=== PATIENT | male | born 1975 | race African-American/Black ===

== ENCOUNTER 2019-08-23 16:49 | Inpatient (IN) | payer SELFPAY ==
[2019-08-23] MEDS ORDERED: NA CHLORIDE 0.9% 1,000 ML ONE (17:15)
[2019-08-23] MEDS ORDERED: ONDANSETRON 4 MG/2 ML VIAL ONE (17:15)
[2019-08-23] MEDS ORDERED: MORPHINE 4 MG/ML SYR ONE ×2 (17:15→19:46)
--- NOTE | 2019-08-23 17:54 | RAD REPORT ---
EXAM DESCRIPTION: RAD - Pelvis - 08/23/2019 5:35 pm CLINICAL HISTORY: Pelvic pain status post injury FINDINGS: No fracture or dislocation is seen. Prominent spur extends medially from the left acetabulum
--- NOTE | 2019-08-23 18:04 | RAD REPORT ---
EXAM DESCRIPTION: RAD - Femur Right - 08/23/2019 5:35 pm CLINICAL HISTORY: Right leg pain FINDINGS: A broken needle is present within the lateral soft tissues of the upper knee. 11 millimeter bony/calcific density lies 25 millimeters superior to the patella. Edema is present wit hin the anterior soft tissues the upper knee. This may indicate an avulsion fracture from the patella secondary quadriceps tendon rupture. Another consideration is that the 11 millimeter density represents a chronic calcification and the quadriceps tendon is intact. This all should be correlated clinically. MRI may be helpful for further evaluation
--- NOTE | 2019-08-23 18:07 | RAD REPORT ---
EXAM DESCRIPTION: RAD - Knee Left 3 View - 08/23/2019 5:35 pm CLINICAL HISTORY: Left knee pain status post injury FINDINGS: Two bony/calcific density lies several centimeters above the patella. The largest measures 10 millimeters. The densities could be chronic calcification. Another consideration is that the toney ent has an avulsion fracture from the patella secondary to a quadriceps tendon rupture. This should b e correlated clinically. MRI of the left knee may be helpful for further evaluation No dislocation
[2019-08-23 18:09] LABS: Absolute Lymphocytes (CBC) 1.9 K/uL (0.7-4.9); Basophils % 1.6 % (0-1.3); Lymphocytes % 23.8 % (15.3-44.8); MPV 9.6 fL (7.6-11.3); RBC Red Blood Cell Count 5.06 M/uL (4.33-5.43)
[2019-08-23 18:20] LABS: Potassium 4.2 mmol/L (3.5-5.1)
--- NOTE | 2019-08-23 19:53 | RAD REPORT ---
EXAM DESCRIPTION: CT - Femur Right Wo Con - 08/23/2019 7:20 pm CLINICAL HISTORY: Right leg pain COMPARISON: X-ray August 23, 2019 TECHNIQUE: Computed axial tomography right femur obtained with coronal and sagittal reconstruction All CT scans are performed using dose optimization technique as appropriate and may include automated exposure control or mA/KV adjustment according to patient size. FINDINGS: Several bony/calcific densities lie a couple centimeters above patella. The largest measur es 10 millimeters. There is marked swelling within the anterior tissues of the lower aspect of the le g and upper knee. A small to moderate joint effusion is present. 2.8 centimeter lipoma is present within the anterior compartment musculature right hip 2.3 centimeter broken needle is present within the subcutaneous tissues right lateral upper knee IMPRESSION: These findings are suspicious for a quadriceps tendon rupture with avulsion fracture fra gments of the patella. However, it is recommended that the patient have an MRI of the knee for confi rmation as this is much more specific for diagnosing this injury 2.3 centimeter broken needle is present within the subcutaneous tissues right lateral upper knee
--- NOTE | 2019-08-23 20:00 | RAD REPORT ---
EXAM DESCRIPTION: CT - Knee Left Wo Con - 08/23/2019 7:20 pm CLINICAL HISTORY: Left knee pain status post injury COMPARISON: X-ray August 23, 2019 TECHNIQUE: Computed axial tomography left knee obtained with coronal and sagittal reconstruction All CT scans are performed using dose optimization technique as appropriate and may include automated exposure control or mA/KV adjustment according to patient size. FINDINGS: Two bony/calcific densities lie subcentimeter superior to the patella. Largest measures 8 millimeters. These may represent acute avulsed fragments from patella. Marked swelling is present wit hin the anterior soft tissue of upper knee and lower aspect of the right leg. A large hemarthrosis is present IMPRESSION: These findings are suspicious for a quadriceps tendon rupture with avulsion fracture fra gments from the patella. It is recommended that the patient have an MRI for confirmation. This test i s much more specific in diagnosing this injury Large hemarthrosis
[2019-08-23] MEDS ORDERED: DIPHENHYDRAMINE 50 MG/ML VIAL ONE (21:24)
[2019-08-23] MEDS ORDERED: METHYLPREDNISOLONE 125 MG INJ ONE (21:24)
[2019-08-23] MEDS ORDERED: FAMOTIDINE 20 MG/2 ML VIAL IV ONE (21:25)
[2019-08-23] MEDS ORDERED: IPRATROPIUM BROM 0.5MG/2.5ML ONE (21:34)
[2019-08-23] MEDS ORDERED: ALBUTEROL 2.5 MG/3 ML NEB SOL ONE ×2 (21:34→21:36)
--- NOTE | 2019-08-23 21:52 | EDPHYS ---
Physician Documentation [facility] Name: Titi Cramer Jr Age: 43 yrs Sex: Male : 1975 Arrival Date: 08/23/2019 Time: 16:55 Bed 16 Private MD: ED Physician Myrna Silverio HPI: 08/22 17:10 This 43 yrs old Black Male presents to ER via EMS with complaints of Right Knee and cp Left Knee Pain. 17:10 The patient presents with decreased range of motion, an injury, pain, that is acute. cp The complaints affect the left knee, lateral aspect of right thigh, lateral aspect of right knee and right knee. 17:10 Context: the patient is not able to bear weight, the patient is not able to ambulate, cp Problem is a result from a previous injury: No. Patient reports he went to catch a ball while playing on beach and jumped, after landing starting having pain right upper leg and pain left knee. Historical: - Allergies: 08/23 00:18 Morphine; ls4 - Home Meds: 08/22 17:34 None [Active]; ls4 - PMHx: 17:34 None; ls4 - PSHx: 17:34 None; ls4 - Immunization history:: Adult Immunizations up to date, Flu vaccine is not up to date. It has been more than one year since last vaccine. - Social history:: Smoking status: Patient denies any tobacco usage or history of. Patient uses alcohol, admits to "couple of beers" a day. ROS: 17:15 Constitutional: Negative for body aches, chills, fever, poor PO intake. cp 17:15 Cardiovascular: Negative for chest pain, palpitations. cp 17:15 Respiratory: Negative for cough, shortness of breath, wheezing. 17:15 Abdomen/GI: Negative for abdominal pain. 17:15 Back: Negative for pain at rest, pain with movement. 17:15 MS/extremity: Positive for decreased range of motion, pain, of the left knee and lateral aspect of right knee and lateral aspect of right thigh, Negative for deformity. 17:15 Neuro: Negative for altered mental status, headache, loss of consciousness. 17:15 All other systems are negative. Exam: 17:20 Head/Face: Normocephalic, atraumatic. cp 17:20 Constitutional: The patient appears in no acute distress, alert, awake, non-diaphoretic, non-toxic, well developed, well nourished, obese. 17:20 Eyes: Periorbital structures: appear normal, Conjunctiva: normal, no exudate, no injection, Lids and lashes: appear normal, bilaterally. 17:20 ENT: External ear(s): are unremarkable, Nose: is normal, Mouth: is normal, Posterior pharynx: Airway: no evidence of obstruction, patent. 17:20 Neck: ROM/movement: is normal, is supple, without pain, no range of motions limitations. 17:20 Chest/axilla: Inspection: normal, Palpation: is normal, no crepitus, no tenderness. 17:20 Cardiovascular: Rate: normal, Rhythm: regular, Edema: is not appreciated, JVD: is not appreciated. 17:20 Respiratory: the patient does not display signs of respiratory distress, Respirations: normal, no use of accessory muscles, no retractions, labored breathing, is not present, Breath sounds: are clear throughout, no decreased breath sounds. 17:20 Abdomen/GI: Inspection: abdomen appears normal, Bowel sounds: active, all quadrants, Palpation: abdomen is soft and non-tender, in all quadrants. 17:20 Back: pain, is absent, ROM is normal. 17:20 Musculoskeletal/extremity: Extremities: grossly normal except: noted in the lateral aspect of right knee and lateral aspect of right thigh: decreased ROM, pain, tenderness, patient unable to lift lower leg off table, There is no evidence of deformity, noted in the left knee: decreased ROM, pain, tenderness, patient unable to lift lower leg off table, no evidence of deformity, Pulses: noted to be 2+ in the right dorsalis pedis artery and left dorsalis pedis artery, Severe pain noted. 17:20 Neuro: Orientation: to person, place \\T\\ time. Mentation: is normal. Vital Signs: 16:55 BP 200 / 113; Pulse 75; Resp 16; Temp 98.6(O); Pulse Ox 99% on R/A; Weight 149.69 kg; ls4 Height 5 ft. 9 in. (175.26 cm); Pain 10/10; 18:30 BP 181 / 100; Pulse 75; Resp 16; Pulse Ox 99% on R/A; Pain 5/10; ls4 19:30 BP 159 / 97; Pulse 74; Resp 19; Pulse Ox 99% on R/A; Pain 3/10; ls4 20:30 BP 168 / 115; Pulse 74; Resp 19; Pulse Ox 98% on R/A; Pain 3/10; ls4 21:08 BP 65 / 26; Pulse 57; Resp 29; Pulse Ox 96% on R/A; Pain 0/10; ls4 21:17 BP 162 / 84; Pulse 68; Resp 19; Temp 98.3(O); Pulse Ox 99% on R/A; Pain 3/10; ls4 21:30 BP 136 / 100; Pulse 67; Resp 16; Pulse Ox 99% on R/A; Pain 3/10; ls4 22:30 BP 177 / 110; Pulse 79; Resp 18; Pulse Ox 99% on R/A; Pain 3/10; ls4 08/23 00:42 BP 163 / 97; Pulse 69; Resp 19; Temp 98.3(O); Pulse Ox 100% on R/A; Pain 3/10; ls4 08/22 16:55 Body Mass Index 48.73 (149.69 kg, 175.26 cm) 4 08/22 21:08 PT COMPLAINS OF SOB, DR VERONICA AND MYRNA PANG NOTIFIED. MEDS GIVEN ORDERED. ls4 21:17 PT FEELING MUCH BETTER, AIRWAY CLEAR, LUNGS CLEAR BILATERALLY. ls4 MDM: 16:57 Patient medically screened. [facility] 20:30 Data reviewed: vital signs, nurses notes, radiologic studies, plain films, I have cp discussed the patient's presentation/case with the attending Emergency Department Physician;. 20:36 Physician consultation: Chuy Ocasio MD was called at 20:30, was contacted at cp 20:30, regarding consult, patient's condition, and will see patient in office, next week, requests bilateral knee immobilizers. 21:50 Response to treatment: the patient's symptoms have mildly improved after treatment, and cp as a result, I will admit patient. 21:50 Physician consultation: Nima Grigsby was called at 21:45, was contacted at 21:45, cp regarding admission, to the medical/surgical unit. patient's condition. ED course: VSS. Patient had hypotensive episode and concern for allergic reaction to morphine. Will admit for continued observation and pain control. 08/22 16:58 Order name: Basic Metabolic Panel; Complete Time: 18:54 cp 08/22 18:55 Interpretation: Normal except: CL 108; GLUC 107; CRE 1.43; GFR 65. cp 08/22 16:58 Order name: CBC with Diff; Complete Time: 18:54 cp 08/22 18:55 Interpretation: Normal except: HGB 12.7; MCV 79.0; MCH 25.0; MCHC 31.7; RDW 15.9; MN% cp 13.0; BASO% 1.6. 06 16:58 Order name: XRAY Pelvis; Complete Time: 18:08 cp 08/22 16:58 Order name: XRAY Femur RIGHT; Complete Time: 18:08 cp 08/22 18:09 Interpretation: Report reviewed. 08/22 16:58 Order name: Type And Screen; Complete Time: 19:10 cp 08/22 16:58 Order name: XRAY Knee LEFT 3 view; Complete Time: 18:08 cp 08/22 18:09 Interpretation: Report reviewed. cp 08/22 18:11 Order name: Femur Right Wo Con; Complete Time: 20:04 EDMS 08/22 18:11 Order name: Knee Left Wo Con; Complete Time: 20:04 EDMS 08/22 16:58 Order name: Labs collected and sent; Complete Time: 17:31 cp 08/22 20:38 Order name: Knee Immobilizer; Complete Time: 21:40 cp 08/22 20:38 Order name: Knee Immobilizer; Complete Time: 21:30 cp 08/22 20:51 Order name: Crutches; Complete Time: 21:40 cp 08/22 21:50 Order name: Splint - Posterior Leg; Complete Time: 23:18 cp Administered Medications: 17:36 Drug: morphine 4 mg Route: IVP; Site: left antecubital; ls4 18:01 Follow up: Response: No adverse reaction ls4 17:36 Drug: Zofran (Ondansetron) 4 mg Route: IVP; Site: left antecubital; ls4 18:01 Follow up: Response: No adverse reaction; Marked relief of symptoms ls4 17:36 Drug: NS 0.9% 1000 ml Route: IV; Rate: 1 bolus; Site: left antecubital; ls4 18:40 Follow up: IV Status: Completed infusion; IV Intake: 1000ml ls4 19:32 Drug: morphine 4 mg Route: IVP; Site: left antecubital; ls4 20:07 Follow up: Response: No adverse reaction; Marked relief of symptoms ls4 21:29 Drug: SOLU-Medrol 125 mg Route: IVP; Site: left antecubital; ls4 21:45 Follow up: Response: No adverse reaction; Marked relief of symptoms ls4 21:45 Follow up: Response: No adverse reaction; Marked relief of symptoms ls4 21:29 Drug: Pepcid 20 mg Route: IVP; Site: left antecubital; ls4 21:29 Follow up: Response: No adverse reaction ls4 21:29 Drug: Benadryl 50 mg Route: IVP; Site: left antecubital; ls4 21:45 Follow up: Response: No adverse reaction; Marked relief of symptoms ls4 23:19 Not Given (Patient Refused): HYDROcodone-acetaminophen 10 mg-325 mg 1 tabs PO once; ls4 RASS on ADMIN: Combtv4, Very Agttd3, Agttd2, Rstlss1, AlertClm0, Drwsy-1, Lt Sdtn-2, Mod Sdtn-3, Dp Sdtn-4, UnArsble-5 23:19 Not Given (Patient Refused): Albuterol - atroVENT (3:1) (2.5 mg - 0.5 mg) 3 ml ls4 Nebulizer once Disposition: 22:00 Chart complete. cp 08/23 16:56 Co-signature as Attending Physician, Myrna Silverio MD I agree with the assessment and jennifer plan of care. Disposition: 08/23/19 21:52 Hospitalization ordered by Nima Grigsby for Observation. Preliminary diagnosis is Injury of quadriceps muscle, fascia and tendon - bilateral. - Bed requested for Telemetry/MedSurg (observation). - Status is Observation. ls4 - Condition is Stable. - Problem is new. - Symptoms have improved. Signatures: Dispatcher [employer] Myrna Oreilly MD MD cha Page, Corey, PA PA cp Garcia, Cindy, RETA RN Reyna Guerin RN RN ls4 Corrections: (The following items were deleted from the chart) 08/22 23:22 21:52 Hospitalization Ordered by Nima Grigsby for Observation. Preliminary diagnosis cg is Injury of quadriceps muscle, fascia and tendon - bilateral. Bed requested for Telemetry/MedSurg (observation). Status is Observation. Condition is Stable. Problem is new. Symptoms have improved. cp 08/23 00:18 08/22 17:34 Allergies: No Known Allergies; ls4 ls4 08/23 00:56 08/22 23:22 08/23/2019 21:52 Hospitalization Ordered by Nima Grigsby for Observation. ls4 Preliminary diagnosis is Injury of quadriceps muscle, fascia and tendon - bilateral. Bed requested for Telemetry/MedSurg (observation). Status is Observation. Condition is Stable. Problem is new. Symptoms have improved. cg
--- NOTE | 2019-08-23 21:52 | ER ---
Nurse's Notes [facility] Name: Titi Cramer Jr Age: 43 yrs Sex: Male : 1975 Arrival Date: 08/23/2019 Time: 16:55 Bed 16 Private MD: Diagnosis: Injury of quadriceps muscle, fascia and tendon-bilateral Presentation: 08/22 16:55 Chief complaint: Patient states: I jumped up and when I landed I dislocated my knee. ls4 16:55 Coronavirus screen: Proceed with normal triage. Patient denies a cough. Patient denies ls4 shortness of breath or difficulty breathing. Patient denies measured and/or subjective temperature greater than 100.4F prior to today's visit. Patient denies travel on a cruise ship or to a country the [facility] currently lists as an affected area. Patient denies contact with known and/or suspected case of COVID-19. Ebola Screen: No symptoms or risks identified at this time. Initial Sepsis Screen: Does the patient meet any 2 criteria? No. Patient's initial sepsis screen is negative. Does the patient have a suspected source of infection? No. Patient's initial sepsis screen is negative. Risk Assessment: Do you want to hurt yourself or someone else? Patient reports no desire to harm self or others. Onset of symptoms was August 23, 2019 at 16:00. 16:55 Method Of Arrival: EMS: [facility] ls4 16:55 Acuity: LILLIAN 3 ls4 Triage Assessment: 16:55 General: Appears in no apparent distress. comfortable, Behavior is calm, cooperative. ls4 Pain: Complains of pain in right knee Pain radiates to lateral aspect of right thigh Pain currently is 10 out of 10 on a pain scale. 16:55 Neuro: No deficits noted. Cardiovascular: No deficits noted. Denies chest pain, Chest ls4 pain is denied. Respiratory: Denies cough, shortness of breath labored breathing, pain with respiration, pain with cough, pain with movement. GI: No deficits noted. No signs and/or symptoms were reported involving the gastrointestinal system. : No deficits noted. No signs and/or symptoms were reported regarding the genitourinary system. Derm: No deficits noted. No signs and/or symptoms reported regarding the dermatologic system. Skin is intact, is healthy with good turgor, Skin is dry, Skin is normal, Wound noted Other: no visible wounds. Musculoskeletal: Circulation, motion, and sensation intact. Capillary refill < 3 seconds, Range of motion: limited in right knee. Historical: - Allergies: 08/23 00:18 Morphine; ls4 - Home Meds: 08/22 17:34 None [Active]; ls4 - PMHx: 17:34 None; ls4 - PSHx: 17:34 None; ls4 - Immunization history:: Adult Immunizations up to date, Flu vaccine is not up to date. It has been more than one year since last vaccine. - Social history:: Smoking status: Patient denies any tobacco usage or history of. Patient uses alcohol, admits to "couple of beers" a day. Screenin:36 Abuse screen: Denies threats or abuse. Denies injuries from another. Nutritional ls4 screening: No deficits noted. Tuberculosis screening: No symptoms or risk factors identified. Fall Risk None identified. Assessment: 17:36 Reassessment: Patient appears in no apparent distress at this time. Patient and/or ls4 family updated on plan of care and expected duration. Pain level reassessed. Patient is alert, oriented x 3, equal unlabored respirations, skin warm/dry/pink. 18:30 Reassessment: Patient appears in no apparent distress at this time. Patient and/or ls4 family updated on plan of care and expected duration. Pain level reassessed. Patient is alert, oriented x 3, equal unlabored respirations, skin warm/dry/pink. Patient states symptoms have improved. 23:28 Reassessment: Patient appears in no apparent distress at this time. Patient and/or ls4 family updated on plan of care and expected duration. Pain level reassessed. Patient is alert, oriented x 3, equal unlabored respirations, skin warm/dry/pink. Patient states symptoms have improved. 23:29 Reassessment: REPORT CALLLED TO TAI. QUESTIONS ANSWERED. ls4 Vital Signs: 16:55 BP 200 / 113; Pulse 75; Resp 16; Temp 98.6(O); Pulse Ox 99% on R/A; Weight 149.69 kg; ls4 Height 5 ft. 9 in. (175.26 cm); Pain 10/10; 18:30 BP 181 / 100; Pulse 75; Resp 16; Pulse Ox 99% on R/A; Pain 5/10; ls4 19:30 BP 159 / 97; Pulse 74; Resp 19; Pulse Ox 99% on R/A; Pain 3/10; ls4 20:30 BP 168 / 115; Pulse 74; Resp 19; Pulse Ox 98% on R/A; Pain 3/10; ls4 21:08 BP 65 / 26; Pulse 57; Resp 29; Pulse Ox 96% on R/A; Pain 0/10; ls4 21:17 BP 162 / 84; Pulse 68; Resp 19; Temp 98.3(O); Pulse Ox 99% on R/A; Pain 3/10; ls4 21:30 BP 136 / 100; Pulse 67; Resp 16; Pulse Ox 99% on R/A; Pain 3/10; ls4 22:30 BP 177 / 110; Pulse 79; Resp 18; Pulse Ox 99% on R/A; Pain 3/10; ls4 08/23 00:42 BP 163 / 97; Pulse 69; Resp 19; Temp 98.3(O); Pulse Ox 100% on R/A; Pain 3/10; ls4 08/22 16:55 Body Mass Index 48.73 (149.69 kg, 175.26 cm) ls4 08/22 21:08 PT COMPLAINS OF SOB, DR VERONICA AND MYRNA BAUMAN NOTIFIED. MEDS GIVEN ORDERED. ls4 21:17 PT FEELING MUCH BETTER, AIRWAY CLEAR, LUNGS CLEAR BILATERALLY. ls4 ED Course: 16:55 Patient arrived in ED. jr8 16:55 Arm band placed on. ls4 16:55 Patient has correct armband on for positive identification. Bed in low position. Call ls4 light in reach. Side rails up X 1. 16:55 Pulse ox on. NIBP on. Door closed. Pillow given. Verbal reassurance given. Diet: ls4 Patient is NPO. 16:55 No provider procedures requiring assistance completed. Inserted saline lock: 18 gauge ls4 in left antecubital area, using aseptic technique. 16:56 Myrna Bauman PA is PHCP. cp 16:56 Myrna Silverio MD is Attending Physician. cp 17:02 Reyna Guerin, RETA is Primary Nurse. ls4 17:33 Triage completed. ls4 17:35 XRAY Pelvis In Process Unspecified. EDMS 17:35 XRAY Femur RIGHT In Process Unspecified. EDMS 17:35 XRAY Knee LEFT 3 view In Process Unspecified. EDMS 19:19 Femur Right Wo Con In Process Unspecified. EDMS 19:19 Knee Left Wo Con In Process Unspecified. EDMS 21:51 Nima Grigsby is Hospitalizing Provider. cp 23:28 No apparent distress. ls4 23:29 Orthoglass splint: Posterior long leg splint applied on right leg. Knee immobilizer ls4 applied on left knee. 08/23 00:54 Patient admitted, IV remains in place. ls4 Administered Medications: 08/22 17:36 Drug: morphine 4 mg Route: IVP; Site: left antecubital; ls4 18:01 Follow up: Response: No adverse reaction ls4 17:36 Drug: Zofran (Ondansetron) 4 mg Route: IVP; Site: left antecubital; ls4 18:01 Follow up: Response: No adverse reaction; Marked relief of symptoms ls4 17:36 Drug: NS 0.9% 1000 ml Route: IV; Rate: 1 bolus; Site: left antecubital; ls4 18:40 Follow up: IV Status: Completed infusion; IV Intake: 1000ml ls4 19:32 Drug: morphine 4 mg Route: IVP; Site: left antecubital; ls4 20:07 Follow up: Response: No adverse reaction; Marked relief of symptoms ls4 21:29 Drug: SOLU-Medrol 125 mg Route: IVP; Site: left antecubital; ls4 21:45 Follow up: Response: No adverse reaction; Marked relief of symptoms ls4 21:45 Follow up: Response: No adverse reaction; Marked relief of symptoms ls4 21:29 Drug: Pepcid 20 mg Route: IVP; Site: left antecubital; ls4 21:29 Follow up: Response: No adverse reaction ls4 21:29 Drug: Benadryl 50 mg Route: IVP; Site: left antecubital; ls4 21:45 Follow up: Response: No adverse reaction; Marked relief of symptoms ls4 23:19 Not Given (Patient Refused): HYDROcodone-acetaminophen 10 mg-325 mg 1 tabs PO once; ls4 RASS on ADMIN: Combtv4, Very Agttd3, Agttd2, Rstlss1, AlertClm0, Drwsy-1, Lt Sdtn-2, Mod Sdtn-3, Dp Sdtn-4, UnArsble-5 23:19 Not Given (Patient Refused): Albuterol - atroVENT (3:1) (2.5 mg - 0.5 mg) 3 ml ls4 Nebulizer once Intake: 18:40 IV: 1000ml; Total: 1000ml. ls4 Outcome: 21:52 Decision to Hospitalize by Provider. cp 08/23 00:53 Admitted to Med/surg accompanied by tech, room 224, Report called to TAI ls4 Condition: stable Instructed on the need for admit. 00:56 Patient left the ED. ls4 Signatures: Dispatcher [employer] EDMS Elliott White PA PA [id number] Myrna Bauman PA PA cp Stewart, Lisa RN RN ls4 Corrections: (The following items were deleted from the chart) 08/22 23:20 16:55 Inserted saline lock: in left ls4 ls4 08/23 00:18 08/22 17:34 Allergies: No Known Allergies; ls4 ls4
--- NOTE | 2019-08-23 22:42 | P.HP ---
Certification for Inpatient Patient admitted to: Inpatient With expected LOS: >2 Midnights Practitioner: I am a practitioner with admitting privileges, knowledge of patient current condition, hospital course, and medical plan of care. Services: Services provided to patient in accordance with Admission requirements found in Title 42 Section 412.3 of the Code of Federal Regulations Patient History Date of Service: 08/23/19 Reason for admission: Bilateral knee pain History of Present Illness: 43-year-old morbidly obese gentleman presented to the emergency department after sustaining bilateral knee injury while playing football. Patient jumped and when he landed developed bilateral knee pain and felt her knees are dislocated. His blood pressure was severely elevated in the ED. CT scan of the lower extremities shows possible quadriceps tendon fracture with avulsion of the patella bilaterally. Patient developed hypotension and shortness of breath after a dose of IV morphine in the ED indicating anaphylactic response to the morphine. He was given IV Solu-Medrol, IV Pepcid and Benadryl with good response. Patient currently unable to ambulate. Orthopedic surgeon was contacted. Patient is hospitalized for further evaluation. - Past Medical/Surgical History Diabetic: No -: None -: None - Social History Smoking Status: Never smoker Alcohol use: Yes CD- Drugs: No Place of Residence: Home Review of Systems Other: Except as documented, all other systems reviewed and negative. Physical Examination - Physical Exam General: Alert, In no apparent distress, Obese HEENT: Atraumatic, Normocephalic, PERRLA, Sclerae nonicteric Neck: Supple, JVD not distended Respiratory: Clear to auscultation bilaterally, Normal air movement Cardiovascular: No edema, Regular rate/rhythm, Normal S1 S2 Gastrointestinal: Normal bowel sounds, Soft and benign, Non-distended, No tenderness Musculoskeletal: Swelling (Suprapatellar regions of bilateral knee), Other (Bilateral knees look deformed) Integumentary: No rashes Neurological: Normal speech, Other (Unable to assess motor in bilateral lower extremities.) - Studies Laboratory Data (last 24 hrs) 08/23/19 17:48: WBC 7.8, Hgb 12.7 L, Hct 40.0, Plt Count 242 08/23/19 17:48: Sodium 141, Potassium 4.2, BUN 17, Creatinine 1.43 H, Glucose 107 H Assessment and Plan - Problems (Diagnosis) (1) Quadriceps tendon rupture Current Visit: Yes Status: Acute (2) Patellar fracture Current Visit: Yes Status: Acute (3) Accelerated hypertension Current Visit: Yes Status: Acute (4) Allergy to morphine Current Visit: Yes Status: Acute - Plan Admit to the medical floor. Pain management with IV Toradol. Trial IV fentanyl IV hydralazine p.r.n. for BP spikes. Orthopedic consultation. Keep NPO post midnight in anticipation for surgery. - Advance Directives Does patient have a Living Will: No Does patient have a Durable POA for Healthcare: No
[2019-08-24] MEDS: NA CHLORIDE 0.9% 1,000 ML IV SCH ×2 (02:17→10:32)
[2019-08-24] MEDS: HYDRALAZINE HCL 20 MG/ML VIAL IV PRN ×2 (02:20→23:56)
[2019-08-24 03:16] VITALS: BMI 48.1
[2019-08-24 05:57] LABS: Absolute Lymphocytes (CBC) 0.9 K/uL (0.7-4.9); Basophils % 0.5 % (0-1.3); Hematocrit 39.1 % (39.6-49.0); Lymphocytes % 9.7 % (15.3-44.8); MPV 9.5 fL (7.6-11.3); RBC Red Blood Cell Count 4.84 M/uL (4.33-5.43)
[2019-08-24 06:15] LABS: Magnesium 2.1 mg/dL (1.8-2.4); Phosphorus 2.2 mg/dL (2.5-4.9); Potassium 4.6 mmol/L (3.5-5.1); Thyroid Stimulating Hormone 0.657 uIU/mL (0.360-3.740)
[2019-08-24 07:10] LABS: Blood Morphology Comment NOT SEEN (NOT SEEN); Platelet Estimate ADEQ
--- NOTE | 2019-08-24 07:59 | P.PN ---
Subjective Date of Service: 08/24/19 Chief Complaint: Bilateral knee pain Patient denies any pain as long as he does not move his legs. His blood pressure readings have improved. Physical Examination - Vital Signs Temperature: 97.3 F Blood Pressure: 140/88 Pulse: 82 Respirations: 20 Pulse Ox (%): 97 - Physical Exam General: Alert, In no apparent distress, Obese Respiratory: Clear to auscultation bilaterally, Normal air movement Cardiovascular: No edema, Regular rate/rhythm, Normal S1 S2 Gastrointestinal: Normal bowel sounds, Soft and benign, No tenderness Musculoskeletal: Other (Cold lower extremities in splint) - Studies Laboratory Data (last 24 hrs) 08/23/19 17:48: WBC 7.8, Hgb 12.7 L, Hct 40.0, Plt Count 242 08/23/19 17:48: Sodium 141, Potassium 4.2, BUN 17, Creatinine 1.43 H, Glucose 107 H Assessment And Plan - Current Problems (Diagnosis) (1) Quadriceps tendon rupture Current Visit: Yes Status: Acute (2) Patellar fracture Current Visit: Yes Status: Acute (3) Accelerated hypertension Current Visit: Yes Status: Acute (4) Allergy to morphine Current Visit: Yes Status: Acute - Plan Pain management with IV Toradol and IV fentanyl as needed. IV hydralazine p.r.n. for BP spikes. Patient to be seen by Dr. Ocasio. Awaiting his recommendations.
[2019-08-24] MEDS ORDERED: POTASSIUM PHOS IN 0.9 % NACL 15 MMOL/250 ML BAG IV ONE (08:00)
[2019-08-24 08:01] LABS: Urine Appearance CLEAR; Urine Bilirubin NEGATIVE (NEG); Urine Blood NEGATIVE (NEG); Urine Color YELLOW; Urine Glucose NEGATIVE (NEG); Urine Microscopic Reflex NO UMIC; Urine Protein NEGATIVE (NEG); Urine Urobilinogen 0.2 mg/dL (0.2-1.0)
[2019-08-24] MEDS: KETOROLAC 30 MG/ML INJ IV PRN ×2 (11:42→21:39)
--- NOTE | 2019-08-24 21:12 | CON ---
Date of Consultation: 08/24/2019 History Of Present Illness: This is my first time seeing Mr. Cramer to my knowledge. He is a pa tient who was apparently at the beach. He tried to leap and catch a football when unfortunately he h ad an injury to his right knee and it gave way. He tried to stabilize himself with his left knee and it gave way as well. He then had the inability to straighten his knees and was brought to the emerg ency department. In the emergency department, he had x-rays as well as CT scans, which are not consi stent with bony injury with the exception of possible flex off the superior pole of patella, but phys ical examination otherwise indicates he has bilateral quadriceps tendon ruptures. I was contacted ab out him and asked if they could obtain an MR. He has have told me that MRs are not performed at this facility over the weekend, then discussed perhaps place him into immobilizers and help with transfer training for a wheelchair as long as he was neurovascularly intact. No sign of knee dislocation. Radha gabriel placed him in 1 knee immobilizer and 1 splint and admitted him to the floor under the care of the hospitalist. Physical Examination: Today, he has taken out of his immobilizer and his splint. He does have 1+ effusion of both knees. He is neurovascularly intact with good pulses. He is unable to extend either knee against gravity. Diagnostic Data: Review of his x-rays does not demonstrate any acute bony injury. Assessment: 43-year-old male who unfortunately appears to have bilateral quadriceps tendon ruptures. However, MRI should be done to confirm this. This could more or less be confirmed on physical exam ination alone. However, there is some possible questions and concerns regarding additional injury wh ich if the quadriceps mechanism is repaired, could avoid detection without MRI. I will speak with queta hospitalist. I have also spoken with the physical therapist regarding getting another knee immobil izer for his left side and perhaps instructing him and transfer training, as well as possible ambulat ion weightbearing as tolerated as long as he is in the immobilizer. The patient says he understands thin gs as presented. SE/MODL Voice ID: [id number] Report ID: [id number]
[2019-08-25 05:48] LABS: Phosphorus 2.5 mg/dL (2.5-4.9)
--- NOTE | 2019-08-25 07:29 | P.DS ---
Admission Date: 08/23/19 Discharge Date: 08/25/19 Disposition: ROUTINE DISCHARGE Reason for Admission: Bilateral knee pain Consultations: Orthopedic-Dr. Ocasio - Problems (1) Quadriceps tendon rupture Current Visit: Yes Status: Acute (2) Patellar fracture Current Visit: Yes Status: Acute (3) Accelerated hypertension Current Visit: Yes Status: Acute (4) Allergy to morphine Current Visit: Yes Status: Acute Brief History of Present Illness: 43-year-old morbidly obese gentleman presented to the emergency department after sustaining bilateral knee injury while playing football. Patient jumped and when he landed developed bilateral knee pain and felt her knees are dislocated. His blood pressure was severely elevated in the ED. CT scan of the lower extremities shows possible quadriceps tendon fracture with avulsion of the patella bilaterally. Patient developed hypotension and shortness of breath after a dose of IV morphine in the ED indicating anaphylactic response to the morphine. He was given IV Solu-Medrol, IV Pepcid and Benadryl with good response. Patient currently unable to ambulate. Orthopedic surgeon was contacted. Patient hospitalized for further evaluation. Hospital Course: Patient treated supportively with IV pain medication-Toradol and fentanyl. He was seen and evaluated by Orthopedic Surgery-Dr. Ocasio, MRI of bilateral knees obtained which...... Orthopedic surgery recommended conservative management with immobilization, no surgical intervention. Bilateral knees splinted. Mobility by wheelchair recommended by ortho. Vital Signs/Physical Exam: Temp Pulse Resp BP Pulse Ox 97.1 F 82 18 130/83 96 08/25/19 04:00 08/25/19 04:00 08/25/19 04:00 08/25/19 04:00 08/25/19 04:00 General: Alert, In no apparent distress Respiratory: Clear to auscultation bilaterally, Normal air movement Cardiovascular: No edema, Normal pulses, Regular rate/rhythm, Normal S1 S2 Gastrointestinal: Normal bowel sounds, Soft and benign, No tenderness Musculoskeletal: Other (Bilateral knees in splints) Laboratory Data at Discharge: WBC 9.4 K/uL (4.3-10.9) D 08/24/19 05:28 Hgb 12.3 g/dL (13.6-17.9) L 08/24/19 05:28 Hct 39.1 % (39.6-49.0) L 08/24/19 05:28 Plt Count 224 K/uL (152-406) 08/24/19 05:28 Sodium 139 mmol/L (136-145) 08/25/19 05:08 Potassium 4.0 mmol/L (3.5-5.1) 08/25/19 05:08 BUN 20 mg/dL (7-18) H 08/25/19 05:08 Creatinine 1.30 mg/dL (0.55-1.3) 08/25/19 05:08 Glucose 108 mg/dL (74-106) H 08/25/19 05:08 Phosphorus 2.5 mg/dL (2.5-4.9) 08/25/19 05:08 Magnesium 2.1 mg/dL (1.8-2.4) 08/24/19 05:28 Home Medications: NK [No Home Meds] 08/24/19 Time spent managing pt's care (in minutes): 34
--- NOTE | 2019-08-25 07:31 | P.PN ---
Subjective Date of Service: 08/25/19 Chief Complaint: Bilateral knee pain Patient denies any pain as long as he does not move his legs. MRI of bilateral knees ordered today. Physical Examination - Vital Signs Temperature: 97.1 F Blood Pressure: 130/83 Pulse: 82 Respirations: 18 Pulse Ox (%): 96 - Physical Exam General: Alert, In no apparent distress Respiratory: Clear to auscultation bilaterally, Normal air movement Cardiovascular: No edema, Regular rate/rhythm, Normal S1 S2 Gastrointestinal: Normal bowel sounds, Soft and benign, No tenderness Musculoskeletal: Other (Bilateral knees in splints.) Assessment And Plan - Current Problems (Diagnosis) (1) Quadriceps tendon rupture Current Visit: Yes Status: Acute (2) Patellar fracture Current Visit: Yes Status: Acute (3) Accelerated hypertension Current Visit: Yes Status: Acute (4) Allergy to morphine Current Visit: Yes Status: Acute - Plan Pain management with IV Toradol and IV fentanyl as needed. IV hydralazine p.r.n. for BP spikes. Awaiting MRI of bilateral knees Awaiting Dr. Ocasio's recommendation after MRI result.
[2019-08-25] MEDS: HYDRALAZINE HCL 20 MG/ML VIAL IV PRN ×3 (11:40→22:17)
--- NOTE | 2019-08-25 16:50 | RAD REPORT ---
EXAM DESCRIPTION: MRI - Knee Right Wo Cont - 08/25/2019 4:17 pm CLINICAL HISTORY: quadricwp tendon rupture COMPARISON: Femur Right Wo Con dated 08/23/2019; Femur Right dated 08/23/2019 TECHNIQUE: Sagittal and axial PD and T2 fat sat sequences obtained. Coronal T2 fat sat and T1 sequen joyce also obtained. FINDINGS: No occult fracture, bone bruise or other signal abnormality of the femur, tibia or fibula. No abnormal patella edema pattern seen. No cortical disruption or fracture of the patella identifiab le. Patella tendon is intact. The anterior cruciate, posterior cruciate, medial collateral and lateral collateral ligaments are int act. No meniscus tear identified. No significant chondromalacia. No full thickness osteochondral defects i dentifiable. Large joint effusion is present. Significant edema is seen in the fatty tissues surrounding the knee. The quadriceps tendon is abnormal. There is full-thickness tear of the lateral and mid fibers of the quadriceps tendon. A few intact fibers are present along the lateral aspect of the quadriceps tendon. There is retraction approximately 20 mm of the medial fibers. Detail is limited. The patient has a m etallic foreign body in the subcutaneous fatty tissues of the lateral knee on the same axial plane as a quadriceps tendon injury. This creates artifact across the area of interest. The calcifications se en on the CT are believed to be related to the tendon tear and retraction. The patient has bony hyper trophy at the quadriceps tendon insertion into the patella. . IMPRESSION: Full-thickness quadriceps tendon tear with a few small thin intact fibers along the late ral margin. The medial and mid fibers are retracted along with muscle retraction. The patient had bony hypertroph y at the tendon insertion into the patella. Small fracture fragments from this bony hypertrophy have retracted along with the tendon and muscle fibers. Large joint effusion. Edema is seen in the subcutaneous fatty tissues. No fracture of the body of the patella. Metallic foreign body in the subcutaneous fatty tissues anterior lateral creates significant artifact which is at the same axial plane as the quadriceps tendon injury.
--- NOTE | 2019-08-25 16:58 | RAD REPORT ---
EXAM DESCRIPTION: MRI - Knee Left Wo Cont - 08/25/2019 4:35 pm CLINICAL HISTORY: Knee injury, quadriceps tendon COMPARISON: CT left knee August 22, plain film left knee August 22 TECHNIQUE: Sagittal and axial PD and T2 fat sat sequences obtained along with coronal T1 and T2 fat sat sequences. FINDINGS: No occult fracture, bone bruise or marrow replacing process of the femur, tibia or fibula. No significant chondromalacia changes are identifiable. There is no full-thickness osteochondral def ect of the tibia or femur. The anterior cruciate, posterior cruciate, medial collateral and lateral c ollateral ligaments are intact. Horizontal tear is present in the posterior horn medial meniscus extending to the inferior articular surface. No free or displaced meniscal tissue. No patella tendon injury identified. Minimal edema changes are present in the patella. There is no c ortical disruption of the patella. Patient has full-thickness rupture of all fibers of the quadriceps tendon. Small fibers remain at th e patella insertion. Muscle belly and proximal fibers of the tendon are retracted 3 cm. At the avulsi on site there is a 6 x 3 x 3 centimeter hematoma. This appears to communicate with the joint space. Prior to injury the patient had bony hypertrophy at the quadriceps tendon insertion into the patella. Several small calcified fragments from this area of hypertrophy have retracted along with the tendon fibers. IMPRESSION: Quadriceps tendon rupture involving all fibers. Small remnant fibers remain at the inser tion site. Muscle belly and proximal tendon fibers have retracted 3 cm and there is a 6 x 3 x 3 centimeter hemat saurabh at the rupture site. No fracture of the patella. Small calcific fragments remain attached to the retracted tendon fibers. These were part of calcific hypertrophy at the insertion site prior to injury. No patella tendon injury. Posterior horn medial meniscus tear. No free or displaced meniscal tissue.
[2019-08-25] MEDS: KETOROLAC 30 MG/ML INJ IV PRN (18:44)
[2019-08-25] MEDS ORDERED: ACETAMINOPHEN 325 MG TABLET PO PRN (23:42)
[2019-08-26] MEDS ORDERED: TRAMADOL HCL 50 MG TAB PO PRN (14:31)
--- NOTE | 2019-08-26 14:38 | P.PN ---
Subjective Date of Service: 08/26/19 Primary Care Provider: none Chief Complaint: Bilateral knee pain Subjective: Improving, Doing well, Other (Pain to the knees and lower extremities controlled.) Physical Examination - Vital Signs Temperature: 97.9 F Blood Pressure: 177/90 Pulse: 79 Respirations: 16 Pulse Ox (%): 97 - Physical Exam General: Alert, In no apparent distress, Oriented x3, Cooperative HEENT: Atraumatic Neck: Supple Respiratory: Clear to auscultation bilaterally, Normal air movement Cardiovascular: Normal pulses, Regular rate/rhythm Gastrointestinal: Normal bowel sounds, Soft and benign, Non-distended Integumentary: Other (Knee immobilizer in place) Neurological: Normal speech, Normal strength at 5/5 x4 extr, Normal tone, Other (Patient in bed.) - Studies Medications List Reviewed: Yes Assessment & Plan Discharge Plan: Home Plan to discharge in: Greater than 2 days Physician Review Additional Text: Impression: Right full-thickness quadriceps tendon tear with larger right knee joint diffusion Left quadriceps tendon rupture,with retracted 3 cm muscle belly and proximal tendon fiber and 6 x 3 x 3 cm hematoma at rupture site Elevated blood pressure suspect hypertension Plan: Case discussed at length with orthopedics. Patient will require surgery. Orthopedics will plan for surgery tomorrow. Patient will require physical therapy at discharge along with close follow up. Will discuss with social insurance administrator to help with options of post operative care. Patient will require knee immobilizers to both knees, wheelchair, and walker. Will order physical therapy after surgery tomorrow. Blood pressure is elevated. Will start metoprolol. Will continue to adjust medication. Provide medication for pain. Time Spent Managing Pts Care (In Minutes): 55
[2019-08-26] MEDS: METOPROLOL TAR 25 MG TAB PO SCH (17:01)
[2019-08-26] MEDS: ENOXAPARIN 40 MG/0.4 ML SQ SCH (17:01)
[2019-08-27] MEDS: METOPROLOL TAR 25 MG TAB PO SCH ×2 (05:03→08:35)
[2019-08-27 06:00] LABS: Basophils % 0.9 % (0-1.3); Hematocrit 37.4 % (39.6-49.0); Lymphocytes % 24.1 % (15.3-44.8); MPV 9.2 fL (7.6-11.3); RBC Red Blood Cell Count 4.73 M/uL (4.33-5.43)
[2019-08-27 06:25] LABS: Magnesium 2.5 mg/dL (1.8-2.4); Potassium 4.1 mmol/L (3.5-5.1)
[2019-08-27] MEDS: HYDRALAZINE HCL 20 MG/ML VIAL IV PRN (09:45)
[2019-08-27] MEDS ORDERED: Ringers Lactate 1,000 ML IV ONE ×2 (13:21→14:55)
[2019-08-27] MEDS ORDERED: LIDOCAINE 2% MPF 5 ML VIAL ONE (14:03)
[2019-08-27] MEDS ORDERED: dexAMETHasone 10 MG/ML VIAL ONE (14:03)
[2019-08-27] MEDS ORDERED: propofoL 200 MG/20 ML VIAL IV ONE (14:03)
[2019-08-27] MEDS ORDERED: MIDAZOLAM HCL 2 MG/2 ML INJ ONE (14:03)
[2019-08-27] MEDS ORDERED: FENTANYL CITR 100 MCG/2 ML ONE ×2 (14:03→14:53)
[2019-08-27] MEDS ORDERED: CEFAZOLIN/SWI 1gm 1 GM/10 ML SYR ONE (14:23)
[2019-08-27] MEDS ORDERED: CEFAZOLIN SODIUM 1 GM/VIAL ONE (14:24)
[2019-08-27] MEDS ORDERED: ROCURONIUM 50 MG/5 ML VIAL IV ONE ×2 (14:29→14:52)
[2019-08-27] MEDS ORDERED: GLYCOPYRROLATE 0.2 MG/ML SYR ONE (15:08)
--- NOTE | 2019-08-27 15:27 | P.PN ---
Subjective Date of Service: 08/27/19 Primary Care Provider: none Chief Complaint: Bilateral knee pain Subjective: Improving Physical Examination - Vital Signs Temperature: 97.9 F Blood Pressure: 160/94 Pulse: 75 Respirations: 20 Pulse Ox (%): 97 - Physical Exam General: Alert, Cooperative HEENT: Atraumatic Neck: Supple Respiratory: Clear to auscultation bilaterally, Normal air movement Cardiovascular: Normal pulses, Regular rate/rhythm Gastrointestinal: Normal bowel sounds, Soft and benign, Non-distended Musculoskeletal: Other (Knee immobilizers in place) - Studies Medications List Reviewed: Yes Assessment & Plan Discharge Plan: Home Plan to discharge in: 72 Hours Physician Review Additional Text: Impression: Right full-thickness quadriceps tendon tear with larger right knee joint diffusion Left quadriceps tendon rupture,with retracted 3 cm muscle belly and proximal tendon fiber and 6 x 3 x 3 cm hematoma at rupture site Elevated blood pressure suspect hypertension Plan: Case discussed at length with orthopedics yesterday. Surgery is planned for today. Will start physical therapy tomorrow. Patient will require knee immobilizers, wheelchair and walker at discharge. Will discuss with social media community manager. Await further recommendations from Orthopedics. Blood pressure elevated. Suspect hypertension. Metoprolol started yesterday. Will continue to adjust appropriately. Time Spent Managing Pts Care (In Minutes): 55
[2019-08-27] MEDS ORDERED: NEOSTIGMINE 1 MG/ML -5 ML ONE (15:34)
[2019-08-27] MEDS ORDERED: NALOXONE 0.4 MG/ML VIAL ONE (15:35)
[2019-08-27] MEDS ORDERED: LABETALOL 20 MG/4ML SYRINGE IV ONE (15:35)
[2019-08-27] MEDS ORDERED: HYDRALAZINE HCL 20 MG/ML VIAL ONE (15:52)
[2019-08-27] MEDS: ENOXAPARIN 40 MG/0.4 ML SQ SCH (17:04)
[2019-08-27] MEDS: METOPROLOL TAR 50 MG TAB PO SCH (17:04)
[2019-08-27] MEDS: ONDANSETRON 4 MG/2 ML VIAL IV PRN (17:56)
[2019-08-28 05:39] LABS: Magnesium 2.7 mg/dL (1.8-2.4); Potassium 4.6 mmol/L (3.5-5.1)
[2019-08-28 05:41] LABS: Absolute Lymphocytes (CBC) 1.3 K/uL (0.7-4.9); Basophils % 0.4 % (0-1.3); Hematocrit 37.4 % (39.6-49.0); Lymphocytes % 10.7 % (15.3-44.8); MPV 9.6 fL (7.6-11.3)
[2019-08-28] MEDS: METOPROLOL TAR 50 MG TAB PO SCH ×2 (06:42→17:35)
[2019-08-28] MEDS: FENTANYL CITR 100 MCG/2 ML IV PRN ×3 (09:20→22:04)
--- NOTE | 2019-08-28 13:53 | P.PN ---
Subjective Date of Service: 08/28/19 Primary Care Provider: none Chief Complaint: Bilateral knee pain Subjective: No new changes, Improving <Nahum Bhandari - Last Filed: 08/28/19 13:49> Date of Service: 08/28/19 <Chin Gaonaand - Last Filed: 08/28/19 16:41> Review of Systems General: Unremarkable Eyes: Unremarkable ENT: Unremarkable Respiratory: Unremarkable Cardiovascular: Unremarkable Gastrointestinal: Unremarkable Genitourinary: Unremarkable Musculoskeletal: As per HPI Integumentary: Unremarkable Neurological: Unremarkable Lymphatics: Unremarkable <Nahum Bhandari - Last Filed: 08/28/19 13:49> Physical Examination - Vital Signs Temperature: 97.2 F Blood Pressure: 136/88 Pulse: 67 Respirations: 20 Pulse Ox (%): 97 - Physical Exam General: Alert, In no apparent distress, Oriented x3 HEENT: Atraumatic, Normocephalic Neck: Supple Respiratory: Clear to auscultation bilaterally, Normal air movement Cardiovascular: No edema, Regular rate/rhythm, Normal S1 S2 Capillary refill: <2 Seconds Gastrointestinal: Normal bowel sounds Musculoskeletal: No erythema, No tenderness, No warmth Integumentary: No erythema, No warmth, No cyanosis Neurological: Normal speech, Normal tone, Normal affect - Studies Medications List Reviewed: Yes <Nahum Bhandari - Last Filed: 08/28/19 13:49> Assessment & Plan Discharge Plan: Home Plan to discharge in: 24 Hours - Code Status/Comfort Care Code Status Assessed: Yes (Patient is full code) Physician Review Additional Text: Impression: Right full-thickness quadriceps tendon tear with larger right knee joint diffusion Left quadriceps tendon rupture,with retracted 3 cm muscle belly and proximal tendon fiber and 6 x 3 x 3 cm hematoma at rupture site Elevated blood pressure suspect hypertension Plan: Yesterday orthopedic took patient to the operating room. Anesthesiology was unable to secure airway for the procedure after attempting direct laryngoscopy, video-assisted laryngoscopy, and bougie placement. LMA insertion was also attempted but they were unable to obtain a good seal. The procedure was abandoned. After discussing case with anesthesiology, orthopedics, ENT the plan going forward is for anesthesiology to perform a regional block for the procedure. Orthopedics plans to take the patient back to the operating room today this evening. Appreciate further input from orthopedics at this time. Patient's blood pressure has improved since initiation of beta-allie therapy. Will continue to monitor patient's blood pressure. Critical Care: No Time Spent Managing Pts Care (In Minutes): 55 <Nahum Bhandari - Last Filed: 08/28/19 13:49> Physician Review Additional Text: Patient seen and examined. Case also discuss with orthopedics, ENT and anesthesia. Anesthesia and surgery had planned for surgery today but his case was come to be too late. Surgery was canceled since of how late the surgery was and patient safety. Therefore will discuss with patient about the possibility of surgery on Sunday with anesthesia performing regional block with possible LMA versus transfer to other facility. Transferring to another facility would be difficult since the patient is unfunded. Will go over options and update Orthopedics. <Shay Gaona - Last Filed: 08/28/19 16:41>
[2019-08-28] MEDS ORDERED: EPINEPHRINE/PF 1 MG/ML AMP ONE (14:52)
[2019-08-28] MEDS ORDERED: BUPIVACAINE 0.75% (PF) 2 ML SP ONE (14:52)
[2019-08-28] MEDS ORDERED: FENTANYL CITR 100 MCG/2 ML ONE (14:53)
[2019-08-28] MEDS: ENOXAPARIN 40 MG/0.4 ML SQ SCH (16:13)
[2019-08-29] MEDS: FENTANYL CITR 100 MCG/2 ML IV PRN ×2 (03:31→09:51)
[2019-08-29] MEDS: HYDROCODONE/APAP 7.5/325 MG TAB PO PRN ×3 (04:37→21:04)
[2019-08-29] MEDS: METOPROLOL TAR 50 MG TAB PO SCH ×2 (05:54→17:34)
[2019-08-29 06:18] LABS: Absolute Lymphocytes (CBC) 2.5 K/uL (0.7-4.9); Basophils % 0.5 % (0-1.3); Hematocrit 35.7 % (39.6-49.0); Lymphocytes % 23.9 % (15.3-44.8); MPV 9.6 fL (7.6-11.3)
[2019-08-29 06:25] LABS: Magnesium 2.5 mg/dL (1.8-2.4); Potassium 4.5 mmol/L (3.5-5.1)
--- NOTE | 2019-08-29 11:41 | P.PN ---
Subjective Date of Service: 08/29/19 Primary Care Provider: none Chief Complaint: Bilateral knee pain Review of Systems General: Unremarkable Eyes: Unremarkable ENT: Unremarkable Respiratory: Unremarkable Cardiovascular: Unremarkable Gastrointestinal: Unremarkable Genitourinary: Unremarkable Musculoskeletal: Leg Pain (Bilateral knee pain) Integumentary: As per HPI Neurological: Unremarkable Lymphatics: Unremarkable Physical Examination - Vital Signs Temperature: 97.0 F Blood Pressure: 136/66 Pulse: 69 Respirations: 18 Pulse Ox (%): 97 - Physical Exam General: Alert, In no apparent distress, Oriented x3 HEENT: Atraumatic, Normocephalic Neck: Supple Respiratory: Normal air movement Cardiovascular: No edema, Normal pulses, Regular rate/rhythm, Normal S1 S2 Capillary refill: <2 Seconds Gastrointestinal: Soft and benign Musculoskeletal: No swelling (Mild swelling bilateral suprapatellar region), No erythema, No warmth Integumentary: No erythema, No warmth Neurological: Normal speech, Normal tone - Studies Medications List Reviewed: Yes Assessment & Plan Discharge Plan: Home Plan to discharge in: Greater than 2 days - Code Status/Comfort Care Code Status Assessed: Yes (Patient is full code) Physician Review: Patient Assessed, Agree with Above Assessment and Plan Physician Review Additional Text: Impression: Right full-thickness quadriceps tendon tear with larger right knee joint diffusion Left quadriceps tendon rupture,with retracted 3 cm muscle belly and proximal tendon fiber and 6 x 3 x 3 cm hematoma at rupture site Elevated blood pressure suspect hypertension Plan: Plan was for patient to have surgical intervention yesterday but no surgery was canceled due to another case running over and the surgeon being unavailable. Patient will need to have surgical intervention likely on Sunday. Anesthesiology is planning for regional block with backup LMA use at that time. Otherwise patient is doing well, pain is under control. Will continue to monitor. Blood pressure fluctuates throughout the day but last measurement is reasonable. Will continue to monitor patient's blood pressure and adjust medi cations as necessary. Critical Care: No Time Spent Managing Pts Care (In Minutes): 55
[2019-08-29] MEDS: HYDRALAZINE HCL 20 MG/ML VIAL IV PRN ×2 (16:40→21:07)
[2019-08-29] MEDS: ENOXAPARIN 40 MG/0.4 ML SQ SCH (17:35)
[2019-08-30] MEDS: METOPROLOL TAR 50 MG TAB PO SCH ×2 (05:05→17:34)
[2019-08-30] MEDS: HYDROCODONE/APAP 7.5/325 MG TAB PO PRN ×3 (08:27→23:31)
--- NOTE | 2019-08-30 14:54 | P.PN ---
Subjective Date of Service: 08/30/19 Primary Care Provider: none Chief Complaint: Bilateral knee pain Subjective: Improving, Doing well Physical Examination - Vital Signs Temperature: 97.9 F Blood Pressure: 150/90 Pulse: 71 Respirations: 20 Pulse Ox (%): 96 - Physical Exam General: Alert, In no apparent distress, Oriented x3, Cooperative HEENT: Atraumatic Neck: Supple Respiratory: Clear to auscultation bilaterally, Normal air movement Cardiovascular: Normal pulses, Regular rate/rhythm Gastrointestinal: Normal bowel sounds, Soft and benign, Non-distended - Studies Medications List Reviewed: Yes Assessment & Plan Discharge Plan: Home Plan to discharge in: Greater than 2 days Physician Review Additional Text: Impression: Right full-thickness quadriceps tendon tear with larger right knee joint diffusion Left quadriceps tendon rupture,with retracted 3 cm muscle belly and proximal tendon fiber and 6 x 3 x 3 cm hematoma at rupture site Hypertension Plan: Right full-thickness quadriceps tendon tear with larger right knee joint diffusion Left quadriceps tendon rupture,with retracted 3 cm muscle belly and proximal tendon fiber and 6 x 3 x 3 cm hematoma at rupture site: Surgery scheduled for Sunday. Anesthesia is planning for regional block with backup LMA. Pain seems to be under control. Will monitor closely. Hypertension: Continue with Metoprolol. Add Norvasc. Time Spent Managing Pts Care (In Minutes): 55
[2019-08-30] MEDS: ENOXAPARIN 40 MG/0.4 ML SQ SCH (16:14)
[2019-08-30] MEDS: AMLODIPINE 5 MG TAB PO SCH (18:41)
[2019-08-31] MEDS: METOPROLOL TAR 50 MG TAB PO SCH ×2 (05:17→17:25)
[2019-08-31] MEDS: AMLODIPINE 5 MG TAB PO SCH (08:16)
[2019-08-31] MEDS: HYDROCODONE/APAP 7.5/325 MG TAB PO PRN ×2 (08:17→16:38)
--- NOTE | 2019-08-31 13:09 | P.PN ---
Subjective Date of Service: 08/31/19 Primary Care Provider: none Chief Complaint: Bilateral knee pain Subjective: No new changes (Pain is controlled. Patient is pending OR tomorrow for repair of quadricep tendon rupture) Physical Examination - Vital Signs Temperature: 96.8 F Blood Pressure: 129/68 Pulse: 85 Respirations: 20 Pulse Ox (%): 95 - Physical Exam General: Alert, In no apparent distress, Oriented x3, Cooperative, Obese HEENT: Atraumatic, Normocephalic, EOMI Neck: Supple Respiratory: Clear to auscultation bilaterally, Normal air movement, Diminished Cardiovascular: No edema, Normal pulses, Regular rate/rhythm, Normal S1 S2 Gastrointestinal: Normal bowel sounds, Soft and benign, Non-distended Musculoskeletal: Other (Bilateral lower extremity brace) Integumentary: No rashes, No breakdown, No significant lesion, No tenderness/swelling, No erythema, No warmth, No cyanosis Neurological: Normal speech, Normal tone, Normal affect - Studies Medications List Reviewed: Yes Assessment & Plan - Problems (Diagnosis) (1) Accelerated hypertension Current Visit: Yes Status: Acute (2) Allergy to morphine Current Visit: Yes Status: Acute (3) Patellar fracture Current Visit: Yes Status: Acute (4) Quadriceps tendon rupture Current Visit: Yes Status: Acute Physician Review: Patient Assessed, Agree with Above Assessment and Plan Physician Review Additional Text: Impression: Patient is a 43 year male with morbid obesity admitted with bilateral quadriceps tendon injuries during a football game. Right full-thickness quadriceps tendon tear with larger right knee joint diffusion Left quadriceps tendon rupture,with retracted 3 cm muscle belly and proximal tendon fiber and 6 x 3 x 3 cm hematoma at rupture site Hypertension Plan: OR tomorrow Anesthesia is planning for regional block with backup LMA. Continue multi-modal pain regimen Continue bed rest and leg immobilizer Continue metoprolol and amlodipine for HTN
[2019-08-31] MEDS: HYDRALAZINE HCL 20 MG/ML VIAL IV PRN (16:33)
[2019-08-31] MEDS: ENOXAPARIN 40 MG/0.4 ML SQ SCH (16:33)
[2019-09-01] MEDS: HYDROCODONE/APAP 7.5/325 MG TAB PO PRN ×2 (00:18→12:06)
[2019-09-01] MEDS: METOPROLOL TAR 50 MG TAB PO SCH ×3 (06:00→18:00)
[2019-09-01] MEDS: AMLODIPINE 5 MG TAB PO SCH (08:45)
[2019-09-01 09:13] LABS: Potassium 4.1 mmol/L (3.5-5.1)
--- NOTE | 2019-09-01 11:30 | P.PN ---
Subjective Date of Service: 09/01/19 Primary Care Provider: none Chief Complaint: Bilateral knee pain Subjective: Doing well Physical Examination - Vital Signs Temperature: 98.4 F Blood Pressure: 160/84 Pulse: 86 Respirations: 20 Pulse Ox (%): 96 - Physical Exam General: Alert, In no apparent distress, Oriented x3, Cooperative HEENT: Atraumatic Neck: Supple Respiratory: Clear to auscultation bilaterally, Normal air movement Cardiovascular: Normal pulses, Regular rate/rhythm Gastrointestinal: Normal bowel sounds Neurological: Normal speech, Normal strength at 5/5 x4 extr, Normal tone, Normal affect - Studies Medications List Reviewed: Yes Assessment & Plan Discharge Plan: Home Plan to discharge in: Greater than 2 days Physician Review Additional Text: Impression: Patient is a 43 year male with morbid obesity admitted with bilateral quadriceps tendon injuries during a football game. Right full-thickness quadriceps tendon tear with larger right knee joint diffusion Left quadriceps tendon rupture,with retracted 3 cm muscle belly and proximal tendon fiber and 6 x 3 x 3 cm hematoma at rupture site Hypertension Plan: Patient stable at this time. Surgery is scheduled for later today. Anesthesia planning for regional block with backup SOFIA. Continue current medications. Patient on blood pressure medication. Continue to adjust medication accordingly. I will turn the service over to the hospitalist team tomorrow. I will go plan of care with him. Time Spent Managing Pts Care (In Minutes): 55
[2019-09-01] MEDS ORDERED: FENTANYL CITR 100 MCG/2 ML ONE ×2 (15:41→17:40)
[2019-09-01] MEDS ORDERED: EPINEPHRINE/PF 1 MG/ML AMP ONE (15:41)
[2019-09-01] MEDS ORDERED: GLYCOPYRROLATE 0.2 MG/ML SYR ONE (15:41)
[2019-09-01] MEDS ORDERED: KETAMINE HCL 500 MG/5 ML VIAL ONE (15:45)
[2019-09-01] MEDS ORDERED: NS 0.9% VIAL 10 ML ONE (15:46)
[2019-09-01] MEDS ORDERED: propofoL 200 MG/20 ML VIAL IV ONE (15:47)
[2019-09-01] MEDS ORDERED: BUPIVACAINE 0.75% (PF) 2 ML SP ONE ×2 (15:51→15:55)
[2019-09-01] MEDS ORDERED: Ringers Lactate 1,000 ML IV ONE ×2 (15:54→18:11)
[2019-09-01] MEDS ORDERED: LIDOCAINE 2% MPF 5 ML VIAL ONE (16:03)
[2019-09-01] MEDS: CEFAZOLIN/SWI 1gm 2 GM/20 ML SYR ONE ×2 (16:30→16:35)
[2019-09-01] MEDS: ENOXAPARIN 40 MG/0.4 ML SQ SCH (17:00)
[2019-09-01] MEDS ORDERED: KETOROLAC 30 MG/ML INJ ONE (18:07)
[2019-09-01] MEDS ORDERED: ONDANSETRON 4 MG/2 ML VIAL ONE (18:07)
[2019-09-01] MEDS ORDERED: dexAMETHasone 10 MG/ML VIAL ONE (18:07)
[2019-09-01] MEDS ORDERED: MIDAZOLAM HCL 2 MG/2 ML INJ ONE (18:11)
--- NOTE | 2019-09-01 18:49 | P.BOP ---
Preoperative diagnosis: bilateral quadraceps tendon ruptures Postoperative diagnosis: same Estimated blood loss: 40 ccs Anesthesia: General Complications: None Transferred to: Recovery Room Condition: Good
[2019-09-01] MEDS: HYDROMORPHONE HCL 1 MG/ML INJ ONE ×4 (19:07→19:29)
[2019-09-01] MEDS: ONDANSETRON 4 MG/2 ML VIAL IV PRN (20:33)
[2019-09-01] MEDS: FENTANYL CITR 100 MCG/2 ML IV PRN (21:25)
[2019-09-02] MEDS: HYDROCODONE/APAP 7.5/325 MG TAB PO PRN ×4 (01:47→21:38)
--- NOTE | 2019-09-02 02:40 | OP ---
Date of Procedure: 09/01/2019 Surgeon: Chuy Ocasio MD Preoperative Diagnosis: Bilateral quadriceps tendon ruptures. Postoperative Diagnosis: Bilateral quadriceps tendon ruptures. Procedure: Repair of bilateral quadriceps tendon rupture. Estimated Blood Loss: 40 cc. Complications: There were no complications. Specimen: No pathology specimen sent. Indications For Operation: Mr. Cramer is a 43-year-old male who [place] the beach [place] o catch a football, unfortunately both of his knees gave way. [facility] was [facility] where x-rays were taken, which demonstrated some small calcifications which were felt to be possibl y avulsions from the patella. Also, he could not perform straight leg raises. Therefore, he is admi tted to the hospital for lack of mobility. He had MRIs which demonstrate bilateral quadriceps tendon ruptures. He was taken back initially by Anesthesia and unfortunately airway difficulties precluded operation last Sunday and scheduling difficulties precluded operation until today. However, well within the therapeutic window and all risks, benefits, and alternatives to quadriceps repair been di scussed with the patient. He states he understands things as presented and wished to proceed. Description Of Procedure: The patient was taken to the operating room. Spinal anesthesia was obtain ed by Anesthesia staff. This was supplemented by some sedation. Both of his lower extremities were then prepped and draped in usual sterile fashion procedure with tourniquet being placed on either avery e. The right side was addressed first and a standard midline incision was taken down carefully throu gh skin and soft tissues. Meticulous hemostasis being maintained using Bovie electrocautery. This l addison down to the patella as well as the patellar tendon. It was then deepened superiorly and there w as obvious large defect in the quadriceps. The lateral corner of the quadriceps still appear to be i ntact. However, the remainder of the quadriceps was quite shredded including some of the medial reti naculum. Hematoma was removed and some debridement was done to freshen up the tendons to allow for g ood visualization. This was followed by use of a #5 FiberWire and a baseball-type stitch which progr ess this from the tendon in up several centimeters and then curved back again exiting the tendon in. This was done on both the medial and lateral aspects. Following this, [address] d in the patella, 1 medial, 1 lateral and 1 center. The lateral FiberWires fit through the lateral b and. The medial FiberWires fed through the medial side and the 2 center FiberWires were placed throu gh the center. These were identified. The quadriceps was then brought down with the knee extension. The FiberWire was then tied over bone tunnels with corresponding sutures. Following this, the knee was then brought to 30 degrees of flexion without any gapping. There was still a small medial retin acular rent which was closed using Ethibond sutures. This was followed by closure of skin using inte rrupted Vicryl sutures, followed by juan. This exact same mechanism was then performed on the con tralateral side. The chondral site should be noted that it was more completely disrupted. Also had rents in both the medial and lateral retinacular which were closed with Ethibond sutures at the end o f the quadriceps repair. Following this, it was again closed. He was then placed in 4x4s and ABD pa d, then over wrapped with soft roll and placed back into a knee immobilizer. He was then taken to re covery room in good condition. No complications. SE/MODL Voice ID: [id number] Report ID: [id number]
[2019-09-02] MEDS: FENTANYL CITR 100 MCG/2 ML IV PRN ×2 (03:22→08:04)
[2019-09-02] MEDS: METOPROLOL TAR 50 MG TAB PO SCH ×2 (06:11→18:16)
[2019-09-02] MEDS: AMLODIPINE 5 MG TAB PO SCH (08:03)
--- NOTE | 2019-09-02 08:11 | P.PN ---
Subjective Date of Service: 09/02/19 Primary Care Provider: none Chief Complaint: Bilateral knee pain Status post bilateral quadriceps tendon repair yesterday. Patient is complaining of pain in both legs. Physical Examination - Vital Signs Temperature: 97.2 F Blood Pressure: 189/111 Pulse: 72 Respirations: 16 Pulse Ox (%): 95 - Physical Exam General: Alert, In no apparent distress Respiratory: Clear to auscultation bilaterally, Normal air movement Cardiovascular: No edema, Regular rate/rhythm, Normal S1 S2 Gastrointestinal: Normal bowel sounds, Soft and benign, No tenderness Musculoskeletal: Other (Bilateral knees in splints.) - Studies Medications List Reviewed: Yes Assessment And Plan - Current Problems (Diagnosis) (1) Quadriceps tendon rupture Current Visit: Yes Status: Acute (2) Patellar fracture Current Visit: Yes Status: Acute (3) Accelerated hypertension Current Visit: Yes Status: Acute (4) Allergy to morphine Current Visit: Yes Status: Acute - Plan Status post bilateral quadriceps tendon repair Pain management as needed. DVT prophylaxis-Gio Frazier to follow. PT and OT. Pain contributing to severe BP elevations. Continue amlodipine and metoprolol. Hydralazine IV p.r.n. for BP spikes. Physician Review: Patient Assessed, Agree with Above Assessment and Plan
[2019-09-02] MEDS: HYDRALAZINE HCL 20 MG/ML VIAL IV PRN ×2 (11:33→23:33)
[2019-09-02] MEDS: HYDROMORPHONE HCL 1 MG/ML INJ IV PRN ×3 (11:33→22:52)
[2019-09-02] MEDS: ENOXAPARIN 40 MG/0.4 ML SQ SCH (18:16)
[2019-09-03] MEDS: HYDROMORPHONE HCL 1 MG/ML INJ IV PRN (02:47)
[2019-09-03] MEDS: HYDROCODONE/APAP 7.5/325 MG TAB PO PRN ×2 (03:54→08:25)
[2019-09-03 04:25] LABS: Absolute Lymphocytes (CBC) 2.6 K/uL (0.7-4.9); Basophils % 0.6 % (0-1.3); Hematocrit 34.8 % (39.6-49.0); MPV 8.6 fL (7.6-11.3); RBC Red Blood Cell Count 4.43 M/uL (4.33-5.43)
[2019-09-03 04:34] LABS: Potassium 4.3 mmol/L (3.5-5.1)
[2019-09-03] MEDS: METOPROLOL TAR 50 MG TAB PO SCH ×2 (06:24→17:34)
[2019-09-03] MEDS: AMLODIPINE 5 MG TAB PO SCH (08:24)
[2019-09-03] MEDS ORDERED: LABETALOL 20 MG/4ML SYRINGE IV PRN (11:34)
--- NOTE | 2019-09-03 11:43 | P.PN ---
Subjective Date of Service: 09/03/19 Primary Care Provider: none Chief Complaint: Bilateral knee pain Subjective: Other (Patient is complaining of back pain and bilateral LE pain. He received an epidural injection preoperartivley for anesthesia. POD#2 s/p repair of quadricep rupture.) Physical Examination - Vital Signs Temperature: 98.7 F Blood Pressure: 192/101 Pulse: 75 Respirations: 18 Pulse Ox (%): 94 - Physical Exam General: Cooperative, Severe distress HEENT: Atraumatic, Normocephalic, EOMI Neck: Supple Respiratory: Clear to auscultation bilaterally, Normal air movement Cardiovascular: No edema, Normal pulses, Regular rate/rhythm, Normal S1 S2 Gastrointestinal: Normal bowel sounds, Soft and benign, Non-distended Musculoskeletal: Other (No paraspinal tenderness or signs of inflammation) Integumentary: No rashes, No breakdown, No significant lesion, No tenderness/swelling, No erythema, No warmth, No cyanosis Neurological: Normal speech, Sensation intact, Normal affect - Studies Medications List Reviewed: Yes Assessment & Plan - Problems (Diagnosis) (1) Accelerated hypertension Current Visit: Yes Status: Acute (2) Allergy to morphine Current Visit: Yes Status: Acute (3) Patellar fracture Current Visit: Yes Status: Acute (4) Quadriceps tendon rupture Current Visit: Yes Status: Acute Physician Review: Patient Assessed, Agree with Above Assessment and Plan Physician Review Additional Text: Impression: Patient is a 43 year male with morbid obesity admitted with bilateral quadriceps tendon injuries during a football game. POD#2 S/P repair of bilateral quadricep rupture. Yet to participate in PT due to pain. Right full-thickness quadriceps tendon tear with larger right knee joint diffusion Left quadriceps tendon rupture,with retracted 3 cm muscle belly and proximal te ndon fiber and 6 x 3 x 3 cm hematoma at rupture site Hypertension Plan: Optimize multi-modal pain regimen including a lidocaine patch for back pain PT/OT today PRN labetalol for BP control Follow up recommendations from Orthopedic surgery
[2019-09-03] MEDS: LIDOCAINE 4% PATCH TOP SCH (11:54)
[2019-09-03] MEDS: GABAPENTIN 100 MG CAP PO SCH ×3 (11:55→21:08)
[2019-09-03] MEDS: TRAMADOL HCL 50 MG TAB PO SCH ×2 (11:56→21:08)
[2019-09-03] MEDS: ENOXAPARIN 40 MG/0.4 ML SQ SCH (17:34)
[2019-09-04] MEDS: HYDROMORPHONE HCL 1 MG/ML INJ IV PRN ×3 (00:12→17:37)
[2019-09-04] MEDS: METOPROLOL TAR 50 MG TAB PO SCH ×2 (05:23→17:28)
[2019-09-04] MEDS: TRAMADOL HCL 50 MG TAB PO SCH ×3 (08:47→20:00)
[2019-09-04] MEDS: AMLODIPINE 5 MG TAB PO SCH (08:48)
[2019-09-04] MEDS: LIDOCAINE 4% PATCH TOP SCH (08:48)
[2019-09-04] MEDS: GABAPENTIN 100 MG CAP PO SCH ×3 (08:48→20:00)
--- NOTE | 2019-09-04 10:35 | P.PN ---
Subjective Date of Service: 09/04/19 Primary Care Provider: none Chief Complaint: Bilateral knee pain Subjective: Other (He is yet to participate in PT due to post op pain and fatigue. I advised him to try and participate in PT today since he is feeling much better today. .) Physical Examination - Vital Signs Temperature: 97.6 F Blood Pressure: 135/85 Pulse: 69 Respirations: 20 Pulse Ox (%): 97 - Physical Exam General: Alert, In no apparent distress, Cooperative, Obese HEENT: Atraumatic, Normocephalic, EOMI Neck: Supple Respiratory: Clear to auscultation bilaterally, Normal air movement Cardiovascular: No edema, Normal pulses, Regular rate/rhythm, Normal S1 S2 Gastrointestinal: Normal bowel sounds, Soft and benign, Non-distended Musculoskeletal: Other (bilateral lower extremity brace in place) Integumentary: No rashes, No breakdown, No significant lesion, No tenderness/swelling, No erythema, No warmth, No cyanosis Neurological: Normal speech, Normal tone, Normal affect - Studies Medications List Reviewed: Yes Assessment & Plan - Problems (Diagnosis) (1) Accelerated hypertension Current Visit: Yes Status: Acute (2) Allergy to morphine Current Visit: Yes Status: Acute (3) Patellar fracture Current Visit: Yes Status: Acute (4) Quadriceps tendon rupture Current Visit: Yes Status: Acute Physician Review: Patient Assessed, Agree with Above Assessment and Plan Physician Review Additional Text: Impression: Patient is a 43 year male with morbid obesity admitted with bilateral quadriceps tendon injuries during a football game. POD#2 S/P repair of bilateral quadricep rupture. Yet to participate in PT due to pain. Pain regimen has been optimized Right full-thickness quadriceps tendon tear with larger right knee joint diffusion Left quadriceps tendon rupture,with retracted 3 cm muscle belly and proximal tendon fiber and 6 x 3 x 3 cm hematoma at rupture site Hypertension Plan: Continue multi-modal pain regimen PT/OT today PRN labetalol for BP control Follow up recommendations from Orthopedic surgery
[2019-09-04] MEDS: HYDROCODONE/APAP 7.5/325 MG TAB PO PRN ×2 (11:59→22:06)
[2019-09-04] MEDS: ENOXAPARIN 40 MG/0.4 ML SQ SCH (17:27)
[2019-09-05] MEDS: HYDROMORPHONE HCL 1 MG/ML INJ IV PRN (04:12)
[2019-09-05] MEDS: METOPROLOL TAR 50 MG TAB PO SCH (05:32)
[2019-09-05] MEDS: LIDOCAINE 4% PATCH TOP SCH (09:00)
[2019-09-05] MEDS: GABAPENTIN 100 MG CAP PO SCH ×2 (09:13→13:51)
[2019-09-05] MEDS: TRAMADOL HCL 50 MG TAB PO SCH ×2 (09:13→13:51)
[2019-09-05] MEDS: AMLODIPINE 5 MG TAB PO SCH (09:13)
[2019-09-05 09:42] VITALS: O2SAT 98
[2019-09-05] MEDS: HYDROCODONE/APAP 7.5/325 MG TAB PO PRN (11:08)
[2019-09-05 13:16] VITALS: BP 129/61; TEMP 97.6
--- NOTE | 2019-09-05 15:38 | P.DS ---
Admission Date: 08/23/19 Discharge Date: 09/05/19 Primary Care Provider: none Disposition: ROUTINE DISCHARGE Discharge Condition: GOOD Reason for Admission: Bilateral knee pain - Problems (1) Accelerated hypertension Current Visit: Yes Status: Acute (2) Allergy to morphine Current Visit: Yes Status: Acute (3) Patellar fracture Current Visit: Yes Status: Acute (4) Quadriceps tendon rupture Current Visit: Yes Status: Acute Brief History of Present Illness: Please refer to H&P Hospital Course: Patient is a 43 year male with morbid obesity who was admitted with bilateral quadriceps rupture while playing football. He underwent surgical repair by Orthopedic surgery. Currently has bilateral braces in place. His hospital course was delayed as he was unable to participate in physical therapy due to pain. His pain regimen has been optimized. He is medically cleared to be discharged. He will follow up with Orthopedic surgery in 2 weeks. Dressings are to remain intact until then. Vital Signs/Physical Exam: Temp Pulse Resp BP Pulse Ox 97.6 F 73 19 129/61 95 09/05/19 12:00 09/05/19 12:00 09/05/19 13:51 09/05/19 12:00 09/05/19 13:51 General: Alert, In no apparent distress, Cooperative, Obese HEENT: Atraumatic, Normocephalic, EOMI Neck: Supple Respiratory: Clear to auscultation bilaterally, Normal air movement Cardiovascular: No edema, Normal pulses, Regular rate/rhythm, Normal S1 S2 Gastrointestinal: Normal bowel sounds, Soft and benign, Non-distended Musculoskeletal: Other (Bilateral lower extremity braces in place. Surgical site wrapped) Neurological: Normal speech, Sensation intact, Normal affect Laboratory Data at Discharge: WBC 12.3 K/uL (4.3-10.9) H D 09/03/19 04:06 Hgb 11.2 g/dL (13.6-17.9) L 09/03/19 04:06 Hct 34.8 % (39.6-49.0) L 09/03/19 04:06 Plt Count 331 K/uL (152-406) D 09/03/19 04:06 Sodium 136 mmol/L (136-145) 09/03/19 04:06 Potassium 4.3 mmol/L (3.5-5.1) 09/03/19 04:06 BUN 21 mg/dL (7-18) H 09/03/19 04:06 Creatinine 1.26 mg/dL (0.55-1.3) 09/03/19 04:06 Glucose 113 mg/dL (74-106) H 09/03/19 04:06 Phosphorus 2.5 mg/dL (2.5-4.9) 08/25/19 05:08 Magnesium 2.5 mg/dL (1.8-2.4) H 08/29/19 04:49 Home Medications: Amlodipine [Norvasc*] 5 mg PO DAILY #30 tab 09/05/19 Gabapentin [Neurontin*] 100 mg PO TID #21 cap 09/05/19 Lidocaine 4% Patch [Lidoderm 5% Patch*] 1 patch TOP DAILY #7 patch 09/05/19 Metoprolol Tartrate [Lopressor*] 50 mg PO BID 6AM 6PM #14 tab 09/05/19 traMADol HCL [Ultram*] 100 mg PO TID #21 tab 09/05/19 New Medications: Lidocaine 4% Patch [Lidoderm 5% Patch*] 1 patch TOP DAILY #7 patch Metoprolol Tartrate [Lopressor*] 50 mg PO BID 6AM 6PM #14 tab Gabapentin [Neurontin*] 100 mg PO TID #21 cap Amlodipine [Norvasc*] 5 mg PO DAILY #30 tab traMADol HCL [Ultram*] 100 mg PO TID #21 tab Diet: Regular
== END 2019-09-05 16:49 | disposition home or self-care (01) | DRG 501 ==
LOC: ER 16:49 → ERHOLD 23:16 → 2ND 08-24 00:22
PROVIDERS: ADMIT Internal Medicine; ATTEND Internal Medicine
PROC: 0LSR0ZZ Reposition Left Knee Tendon, Open Approach (ICD-10-PCS; principal; 2019-08-24)
PROC: 0LSQ0ZZ Reposition Right Knee Tendon, Open Approach (ICD-10-PCS; 2019-08-24)
DX: S76.112A Strain of left quadriceps muscle, fascia and tendon, initial encounter (principal); S82.009A Unspecified fracture of unspecified patella, initial encounter for closed fracture; Z68.42 Body mass index [BMI] 45.0-49.9, adult; S76.111A Strain of right quadriceps muscle, fascia and tendon, initial encounter; E66.01 Morbid (severe) obesity due to excess calories; I10 Essential (primary) hypertension; I95.9 Hypotension, unspecified; Z11.59 Encounter for screening for other viral diseases; Y93.61 Activity, american tackle football; Z88.5 Allergy status to narcotic agent
CPT/HCPCS: 36415; 72170; 73700; 80048; 81003; 83735; 84100; 84443; 85025; 86850; 86900; 86901; 96361; 96374; 96375; 97110; 97116; 97161; 97164; 97530; 97760; 99285; J0171; J0360; J0690; J1100; J1170; J1200; J1650; J2250; J2310; J2405; J2704; J2710; J2930; J3010; J7030; J7120; U0002